=== PATIENT | female | born 1975 | race Caucasian/White ===

== ENCOUNTER 2023-08-20 18:58 | Emergency (ER) | payer SELFPAY ==
[2023-08-20 19:02] VITALS: BP 114/71; PULSE 90; RESP 14; TEMP 36.6; O2SAT 97
[2023-08-20] MEDS: Benzocaine 20% Gel 30 GM JAR MM (20:57)
[2023-08-20] MEDS: Ibuprofen 600 MG TAB PO (20:57)
[2023-08-20] MEDS: Amoxicillin 875/Clav. 125 TAB PO (20:57)
[2023-08-20 20:58] VITALS: BP 114/71; PULSE 90; RESP 14; TEMP 36.6; O2SAT 97
--- NOTE | 2023-08-20 20:58 | ED.GENADUL_ITS ---
Discharge Plan Disposition Patient Disposition: Home Discharge Details Clinical Impression: Dental abscess Primary Care Provider: Unknown,Unknown ED Provider: Radha Simpson Home Meds and New Rx's Prescriptions: New amoxicillin-pot clavulanate 875-125 mg tablet 1 tab PO BID Qty: 18 0RF Discharge Instructions Instructions: Tooth Abscess ED Additional Instructions: I encourage you to reach out to area dentist for definitive management of your dental abscess/cracked tooth. I will prescribe antibiotics. Please take the full course as prescribed. I recommend that you take these with yogurt to prevent antibiotic associated diarrhea. Ibuprofen 600 mg every 8 hours as needed for pain control. Return to emergency care if develop fevers after 48 hours of antibiotics, worsening swelling, swelling under your tongue, difficulty swallowing, vision changes, severe headaches, or if you are very worried and need to be rechecked again immediately HPI General Date/Time Provider Initiated Documentation: 08/20/23 20:30 . HPI Narrative: Angela is a 47-year-old female who presents to the emergency department today for 4 evaluation of right upper molar abscess. She reports that she broke her tooth the other day, has noticed significant swelling and pain just next to her second molar. She reports that this tooth was infected when she had her wisdom teeth removed, it cracked in the process of extraction and has been giving her problems since then. She reports that she feels some chills, but has had no recorded fever. No difficulty swallowing, trismus, ear pain, vision changes. She does feel like open cells are swollen on the right side of her neck. Denies significant past medical history. No recent antibiotic use. She lives in [facility], is here working in farming. Physical exam remarkable for abscess to the hard palate adjacent to right upper second molar. This is a fluctuant abscess, no active drainage. Tender to palpation. Extensive dental decay noted. No trismus. No swelling under the tongue consistent with viral illness and in. Full painless range of motion to neck. Mild R sided anterior cervical LAD. PERRL, EOMs intact. History and presentation consistent with uncomplicated dental abscess, no concern at this time for deep space infection or systemic involvement requiring imaging or blood work at this time. Dental abscess was drained using 18-gauge needle after topical anesthetic applied and 1.5 cc 2% lidocaine with epi instilled in area. Patient tolerated procedure well, scant amount of pus drainage Will treat with Augmentin and ibuprofen for pain. Provided list of dental providers in the area for definitive management. Reviewed red flags indicating need for return to emergency care. She is agreeable with plan of care. Related Data Home Medications ?Medication ?Instructions ?Recorded ?Confirmed amoxicillin 875 mg-potassium 1 tab PO BID #18 tabs 08/20/23 clavulanate 125 mg tablet Previous Rx's ?Medication ?Instructions ?Recorded amoxicillin 875 mg-potassium 1 tab PO BID #18 tabs 08/20/23 clavulanate 125 mg tablet Allergies Allergy/AdvReac Type Severity Reaction Status Date / Time No Known Allergies Allergy Verified 08/20/23 19:05 General Stated Complaint: DentalOral DURAN: 4 Review of Systems Narrative: See HPI Exam Const General: cooperative, healthy appearing and no acute distress Nutritional Appearance: average body habitus HENMT Head: normal to inspection Ears: hearing grossly normal bilaterally General nose exam: external nose normal Face and sinus: normal facial exam Mouth: lip normal, tongue normal and no trismus Teeth and gingiva: other (approx 1 cm fluctuant abscess) Teeth image: 2 1. area of abscess Neck Neck: normal visual inspection, full ROM, no anterior neck swelling and lymphadenopathy mild, R sided Resp Effort & Inspection: normal respiratory effort and able to speak in complete sentences Course Vital Signs Vital signs: Vital Signs Temperature 36.6 C 08/20/23 19:02 Pulse 90 08/20/23 19:02 Respiratory Rate 14 08/20/23 19:02 Blood Pressure 114/71 08/20/23 19:02 Pulse Oximetry 97 08/20/23 19:02 Temperature 36.6 C 08/20/23 19:02 Temperature Source Skin 08/20/23 19:02 Pulse 90 08/20/23 19:02 Respiratory Rate 14 08/20/23 19:02 Blood Pressure 114/71 08/20/23 19:02 Blood Pressure Position Sitting 08/20/23 19:02 Pulse Oximetry 97 08/20/23 19:02 Oxygen Delivery Method Room Air 08/20/23 19:02 Oxygen Flow Rate 0 08/20/23 19:02 Pain Level 7 08/20/23 19:02 Medical Decision Making Quality:SDOH Health Related Social Needs: 2 Health related social needs risk of homeless Health related social needs details Unable to find den tist to extract broken tooth PFSH All Active Problems (Updated 08/20/23 @ 21:25 by Radha Bhatia) Dental abscess (Acute) Social History Smoking/Tobacco Use Status: Unknown Smoking risk assessment performed?: Yes Alcohol Intake: never Drug use: Never Substance use type: does not use Housing: other Do you feel safe at home: Yes Do you feel safe in your relationship?: Yes
[2023-08-20 21:44] VITALS: BP 114/71; PULSE 90; RESP 14; TEMP 36.6; O2SAT 97
== END 2023-08-20 21:44 | disposition home or self-care (01) ==
PROVIDERS: Emergency Provider Nurse Practitioner Family
DX: K04.7 Periapical abscess without sinus (principal)
CPT/HCPCS: 10060; 99283

== ENCOUNTER 2025-01-22 12:23 | Outpatient (REF) | payer MEDICAID, SELFPAY ==
[2025-01-22 16:55] LABS: Vitamin D 25 Total 28 ng/mL (30-100)
[2025-01-22 16:56] LABS: Ferritin 65 ng/mL (7-271); TSH (W/Ref FT4) 0.67 uIU/mL (0.55-4.78)
[2025-01-22 17:12] LABS: ALT 31 U/L (10-49); AST 25 U/L (<34); Albumin 4.4 g/dL (3.2-5.0); Alkaline Phosphatase 50 U/L (46-116); Anion Gap 7.1 mmol/L (3-11); BUN 13 mg/dL (9-23); Bilirubin, Total 0.4 mg/dL (0.2-1.2); CO2 27.9 mmol/L (20.0-31.0); Calcium 9.7 mg/dL (8.3-10.6); Chloride 107 mmol/L (98-107); Cholesterol 169 mg/dL (<200); Glucose 92 mg/dL (74-106); HDL Cholesterol 88 mg/dL (>or=50); Potassium 4.6 mmol/L (3.5-5.1); Sodium 142 mmol/L (136-145); Total Protein 7.1 g/dL (5.7-8.2)
[2025-01-22 17:16] LABS: Iron 85 ug/dL (50-170); Total Iron Binding Capacity 310 ug/dL (250-425)
[2025-01-22 17:32] LABS: HCT 37.6 % (36.0-46.0); HGB 12.5 g/dL (11.2-15.7); MCH 30.6 pg (27.0-33.0); MCHC 33.2 % (32.0-36.0); MCV 92 fL (80-95); MPV 10.6 fL (8.0-11.0); Platelet Count 243 10^3/uL (130-400); RBC 4.09 10^6/uL (3.93-5.22); RDW 13.1 % (11.7-14.6); RDW-SD 44.2 fL; WBC 7.32 10^3/uL (4.4-10.8)
[2025-01-22 18:13] LABS: Hemoglobin A1C 5.3 % (<5.7)
== END 2025-01-22 12:24 | disposition home or self-care (01) ==
LOC: NCHCN 12:23
DX: Z13.1 Encounter for screening for diabetes mellitus (principal); Z13.29 Encounter for screening for other suspected endocrine disorder; Z13.220 Encounter for screening for lipoid disorders; Z13.0 Encounter for screening for diseases of the blood and blood-forming organs and certain disorders involving the immune mechanism; Z13.21 Encounter for screening for nutritional disorder; D64.9 Anemia, unspecified
CPT/HCPCS: 80053; 80061; 82306; 85027; 82728; 83036; 83540; 83550; 84443

== ENCOUNTER 2025-02-03 11:31 | Outpatient (CLI) | payer MEDICAID, SELFPAY ==
--- NOTE | 2025-02-03 11:25 | DI.US_ITS ---
Exam(s) US SOFT TISS ABD WALL/LOW BACK EXAM: US SOFT TISS ABD WALL/LOW BACK CLINICAL HISTORY: ABD WALL HERNIA K43.9 VENTRAL HERNIA. TECHNIQUE: Ultrasound was performed using standard protocol. COMPARISON: No exams were available for comparison FINDINGS: Sonographic assessment utilizing grayscale and color Doppler imaging was performed and targeted to the area of clinical concern in the left lower quadrant. There is no evidence mass or hernia. Peristalsing bowel is noted. IMPRESSION: No evidence of mass or hernia. DATA REPOSITORY:
[2025-02-04 10:49] LABS: Campylobacter PCR Negative (Negative); Shiga Toxin PCR Negative (Negative); Shigella/Enteroinvasive Ecoli Negative (Negative)
== END 2025-02-03 11:32 | disposition home or self-care (01) ==
LOC: DI 11:31 → LBN 14:58
DX: R19.7 Diarrhea, unspecified (principal); K43.9 Ventral hernia without obstruction or gangrene
CPT/HCPCS: 87015; 87269; 87272; 87505; 76705